=== PATIENT | male | born 1960 | race Caucasian/White ===

== ENCOUNTER → 2017-02-14 19:24 | Outpatient (CLI) | payer BC | END | disposition home or self-care (01) | LOC: D.SLEEP 19:24 | DX: G47.30 Sleep apnea, unspecified (principal) ==

== ENCOUNTER → 2017-08-01 11:00 | Outpatient (CLI) | payer BC ==
[~2017-08-01] VITALS: Ht 182.9 cm; Wt 96.4 kg
--- NOTE | ~2017-08-01 | HEMODYNAMI ---
PATIENT:CADEN FLORES MEDICAL RECORD: [id number] : 64 LOCATION:D.CAT ADMISSION DATE: 08/01/17 Generatedon:08/01/201714:12 Patient name: CADEN FLORES Patient #: [id number] SSN: : 1960 Date of study: 08/01/2017 Page: Of Hemodynamic Procedure Report Patient Data Patient Demographics Procedure consent was obtained First Name: CADEN Gender: Male Last Name: MARK : 1960 [facility] Initial: B Age: 56 year(s) Patient #: [id number] Race: Unknown Additional ID: [id number] Contact details Address: [place] [address] State: [place] City: [place] Zip code: [address] Past Medical History Allergies: No known allergies Admission Admission Data Admission Date: 08/01/2017 Admission Time: 11:00 Admit Source: Other Lab Results Lab Result Date: 08/01/2017 Lab Result Time: 0:00 Biochemistry Name Units Result Min Max BUN mg/dl 13 --(--*-)-- 7 18 Creatinine mg/dl 0.9 --(-*--)-- 0.6 1.3 CBC Name Units Result Min Max Hemoglobin g/dl 15 --(-*--)-- 13.5 17.5 Procedure Procedure Types Cath Procedure Diagnostic Procedure [facility] w/Coronaries PCI Procedure Coronary Stent Coronary Stent Initial Procedure Description Procedure Date Procedure Date: 08/01/2017 Procedure Start Time: 13:10 Procedure End Time: 14:12 Procedure Staff Name Function Venu Ocampo MD Performing Physician Akshat Morales RT Monitor Alyson Hammer RT Scrub Josef Goldstein RN Nurse Jordi Duckworth RT Monitor Procedure Data Cath Procedure Fluoroscopy Diagnostic fluoroscopy Total fluoroscopy Time: time: 13.6 min 13.6 min Diagnostic fluoroscopy Total fluoroscopy dose: dose: 961.46 mGy 961.46 mGy Contrast Material Contrast Material Type Amount (ml) Isovue 300 177 Entry Location Entry Primary Successful Side Size Upsize Upsize Entry Closure Ambrose ccessful Closure Location (Fr) 1 (Fr) 2 (Fr) Remarks Device Remarks Radial Right 6 Fr Mechanical artery Short Compression Femoral Right 6 Fr Exoseal artery Short Estimated blood loss: 20 ml Diagnostic catheters Device Type Used For End Catheter Placement DIAGNOSTIC [place] 110cm 5 Procedure Fr catheter ([id number]) DIAGNOSTIC JL 3.5 5Fr Procedure catheter ([id number]) Procedure Medications Medication Administration Route Dosage 0.9% NaCl I.V. 100 ml/hr Oxygen etCO2 Nasal cannula 2 l/min Heparin Flush Bag added to field 2 bags (1000units/500ml NS) Lidocaine 2% added to field 20 Radial Cocktail added to field (Verapomil 2mg/Nitro 400mcg/Heparin 1500units) Versed I.V. 2 mg Fentanyl I.V. 100 mcg Versed I.V. 1 mg Versed I.V. 1 mg Heparin Bolus I.V. 5000 units Integrilin (Bolus I.V. 8.5 ml 2mg/ml) Integrilin (Bolus wasted 1.5 ml 2mg/ml) Versed I.V. 1 mg Versed I.V. 1 mg Plavix P.O. 600 mg Hemodynamics Rest HGB: 15 (g/dl) Heart Rate: 77 (bpm) Pressure Samples Time Site Value (mmHg) Purpose Heart Use Rate(bpm) 13:12 LV 103/3,6 Snapshot 89 13:13 AO 102/76(85) Pullback 84 13:13 LV 97/5,6 Pullback 84 Gradients Valve Time Site 1 Site 2 Mean SEP/DFP Peak To Heart Use (mmHg) (sec/min) Peak Rate (mmHg) (bpm) Aortic 13:13 LV AO 0 84 97/5,6 102/76(85) Calculations Valve P-P Mean Valve Index Valve Source Name Gradient Area Flow (cm2) Aortic 0 0 Snapshots Pre Cath Intra NCS Post Cath Vital Signs Time Heart Resp SPO2 etCO2 NIBP (mmHg) Rhythm Pain Sedation Rate (ipm) (%) (mmHg) Status Level (bpm) 12:57:07 75 20 100 32.4 124/84(101) NSR 0 (11) 10(A) , No pain 13:01:17 77 15 95 33.1 119/84(96) NSR 0 (11) 10(A) , No pain 13:05:23 87 12 92 27.8 125/86(107) NSR 0 (11) 10(A) , No pain 13:09:35 75 12 94 40.6 124/76(100) NSR 0 (11) 10(A) , No pain 13:13:42 88 14 94 31.6 109/71(87) NSR 0 (11) 10(A) , No pain 13:17:52 85 13 92 23.3 114/73(88) NSR 0 (11) 10(A) , No pain 13:22:02 86 13 94 9 112/75(88) NSR 0 (11) 9(A) , No pain 13:26:12 80 15 95 34.6 108/74(90) NSR 0 (11) 9(A) , No pain 13:30:20 82 16 97 30.1 115/75(104) NSR 0 (11) 10(A) , No pain 13:34:28 79 13 99 30.8 113/76(93) NSR 0 (11) 10(A) , No pain 13:38:36 79 16 99 32.3 113/80(92) NSR 0 (11) 10(A) , No pain 13:42:45 78 15 100 15.8 110/75(93) NSR 0 (11) 10(A) , No pain 13:46:55 76 16 96 27.8 111/71(94) NSR 0 (11) 10(A) , No pain 13:51:01 78 15 98 30 116/82(91) NSR 0 (11) 10(A) , No pain 13:55:11 77 14 97 37.6 109/75(92) NSR 0 (11) 10(A) , No pain 13:59:17 81 16 98 30 113/84(103) NSR 0 (11) 10(A) , No pain 14:03:27 71 13 100 29.3 114/75(104) NSR 0 (11) 10(A) , No pain 14:07:37 69 17 100 30 119/76(95) NSR 0 (11) 10(A) , No pain 14:11:44 67 18 100 24.8 122/84(94) NSR 0 (11) 10(A) , No pain Medications Time Medication Route Dose Verified Delivered Reason Notes Effectiveness by by 12:56:27 0.9% NaCl I.V. 100 Josef Josef Per physician ml/hr Triston Goldstein RN RN 12:56:41 Oxygen etCO2 2 Josef Josef Per physician Nasal l/min Triston Goldstein cannula RN RN 12:57:00 Heparin Flush added 2 Josef Josef used for Bag to bags Loringe Goldstein procedure (1000units/500ml field RN RN NS) 12:57:19 Lidocaine 2% added 20ml Josef Josef for local to vial Lorigan Triston anesthetic field RN RN 12:57:31 Radial Cocktail added Josef Josef used for (Verapomil to Lorigan Lorigan procedure 2mg/Nitro field RN RN 400mcg/Heparin 1500units) 13:03:04 Versed I.V. 2 mg Josef Josef for sedation Triston Goldstein RN RN 13:03:14 Fentanyl I.V. 100 Josef Josef for sedation mcg Triston Goldstein RN RN 13:11:49 Versed I.V. 1 mg Josef Josef for sedation Triston Goldstein RN RN 13:17:58 Versed I.V. 1 mg Josef Josef for sedation Triston Goldstein RN RN 13:27:41 Heparin Bolus I.V. 5000 Josef Josef for units Triston Goldstein anticoagulation RN RN 13:27:58 Integrilin I.V. 8.5 Josef Josef for (Bolus 2mg/ml) ml Triston Goldstein antiplatelet RN RN therapy 13:28:11 Integrilin wasted 1.5 Josef Josef to sharp's (Bolus 2mg/ml) ml Triston Goldstein RN RN 13:31:34 Versed I.V. 1 mg Josef Josef for sedation Triston Goldstein RN RN 13:37:27 Versed I.V. 1 mg Josef Josef for sedation Triston Goldstein RN RN 13:59:25 Plavix P.O. 600 Josef Josef for mg Triston Goldstein antiplatelet RN RN therapy Procedure Log Time Note 12:35:36 Time tracking: Regular hours (M-F 7:00 - 5:00) 12:35:39 Plan of Care:Hemodynamics will remain stable., Cardiac rhythm will remain stable., Comfort level will be maintained., Respiratory function will remain adequate., Patient/ family verbilizes understanding of procedure., Procedure tolerated without complication., Recovers from procedure without complications.. 12:35:41 Signed procedure consent form obtained from patient. 12:35:54 H&P Date Dictated: 07/11/2017 Within 30 days and on chart., H&P Addendum completed by physician on day of procedure. (MUST COMPLETE FOR ALL OUTPATIENTS). 12:36:01 Patient allergic to No known allergies 12:36:50 Lab Result : BUN 13 mg/dl 12:36:50 Lab Result : Creatinine 0.9 mg/dl 12:36:50 Lab Result : Hemoglobin 15 g/dl 12:41:03 Akshat Morales RT(R) sent for patient. Start room use. 12:41:07 Admit Source: Other 12:47:32 Patient received from Pre/Post Procedure Room to CCL 3 Alert and oriented. Tansferred to table in Supine position. 12:47:33 Warm blankets applied, and sher hugger turned on for patient comfort. 12:47:33 Correct patient and procedure confirmed by team. 12:47:34 ECG and BP/O2 sat monitors applied to patient. 12:56:05 Vital chart was started 12:56:27 0.9% NaCl 100 ml/hr I.V. was administered by Josef Goldstein RN; Per physician; 12:56:41 Oxygen 2 l/min etCO2 Nasal cannula was administered by Josef Goldstein RN; Per physician; 12:57:00 Heparin Flush Bag (1000units/500ml NS) 2 bags added to field was administered by Josef Goldstein RN; used for procedure; 12:57:19 Lidocaine 2% 20ml vial added to field was administered by Josef Goldstein RN; for local anesthetic; 12:57:31 Radial Cocktail (Verapomil 2mg/Nitro 400mcg/Heparin 1500units) added to field was administered by Josef Goldstein RN; used for procedure; 13:01:31 Baseline sample Acquired. 13:01:33 Rhythm: sinus rhythm 13:01:34 Full Disclosure recording started 13:01:36 Pre-procedure instructions explained to patient. 13:01:36 Pre-op teaching completed and patient verbalized understanding. 13:01:37 Family in waiting room. 13:01:38 Patient NPO since Midnight. 13:01:39 Is the patient allergic to Iodine/contrast media? No. 13:01:40 Is patient on blood thinner?No 13:01:41 Patient diabetic? No. 13:01:43 Previous problem with sedation/anesthesia? No ? 13:01:43 Snore? Yes 13:01:44 Sleep apnea? Yes 13:01:45 Deviated septum? No 13:01:45 Opens mouth fully? Yes 13:01:46 Sticks out tongue? Yes 13:01:48 Airway obstruction? No ? 13:01:50 Dentures? No ? 13:01:54 Modified Umair's test Ulnar < 7 seconds 13:01:56 Patient pain scale 0/10 ?. 13:02:00 IV patent on arrival in left forearm with 0.9% NaCl at [facility]. 13:02:02 Lab results completed and on chart. 13:02:04 Right Radial & Right Groin area was prepped with chlora-prep and draped in sterile fashion 13:02:05 Alarms reviewed by R. N. 13:02:09 Use device set Radial Dx or PCI 13:02:10 ACIST Syringe (02827) opened to sterile field. 13:02:10 Medline Cath Pack ([id number]) opened to sterile field. 13:02:11 Bag Decanter (2002S) opened to sterile field. 13:02:12 ACIST Hand Control (73497) opened to sterile field. 13:02:12 ACIST Manifold (81424) opened to sterile field. 13:02:13 Tegaderm 4 x 4 (1626W) opened to sterile field. 13:02:13 MBrace Wrist Support ([id number]) opened to sterile field. 13:02:15 DIAGNOSTIC WIRE .035 260cm J wire (317735) opened to sterile field. 13:02:22 SHEATH 6Fr Prelude Radial ([id number]) opened to sterile field. 13:02:28 Sharps counted by scrub and verified by R.N. 13:02:31 Physician arrived 13:02:31 --------ALL STOP TIME OUT------ 13:02:31 Final Timeout: patient, procedure, and site verified with staff and physician. All members of the team are in agreement. 13:02:33 Right Radial & Right Groin site verified by team. 13:02:35 Physical assessment completed. ASA score P 2 - A patient with mild systemic disease as per Venu Ocampo MD. 13:02:38 Sedation plan: IV Moderate Sedation Medication:Versed, Fentanyl 13:03:04 Versed 2 mg I.V. was administered by Josef Goldstein RN; for sedation; 13:03:14 Fentanyl 100 mcg I.V. was administered by Josef Goldstein RN; for sedation; 13:10:34 Zero performed for pressure channel P1 13:10:39 Procedure started. 13:10:42 Local anesthetic to right radial artery with Lidocaine 2% by Venu Ocampo MD.INITIAL ACCESS ONLY 13:10:49 A 6 Fr Short sheath was inserted into the Right Radial artery 13:11:49 Versed 1 mg I.V. was administered by Josef Goldstein RN; for sedation; 13:12:06 A DIAGNOSTIC [place] 110cm 5 Fr catheter (631703) was advanced over the wire and used for Procedure. 13:12:28 LV gram done using CRABTREE 13:12:34 Injector settings: Ml/sec: 5, Volume: 15, 13:12:38 LV hemodynamics recorded. 13:12:56 EF : 40 % 13:13:36 RCA angiography performed. 13:14:40 Catheter exchanged over wire. 13:15:06 A DIAGNOSTIC JL 3.5 5Fr catheter ([id number]) was advanced over the wire and used for Procedure. 13:16:39 Catheter removed. unable to cannulate vessel. 13:16:55 GUIDE 6FR XBLAD 3.5 catheter ([id number]) opened to sterile field. 13:17:09 6 Fr xblad 2.5 guide catheter was inserted over the wire 13:17:58 Versed 1 mg I.V. was administered by Josef Goldstein RN; for sedation; 13:18:30 LCA angiography performed. 13:22:00 WHISPER 300cm guide wire ([id number]) opened to sterile field. 13:22:01 INFLATOR Merit BasixCompak (JQ6184) opened to sterile field. 13:23:10 whisper wire advanced. 13:27:41 Heparin Bolus 5000 units I.V. was administered by Josef Goldstein RN; for anticoagulation; 13:27:43 whisper wire unable to advance. 13:27:50 Wire removed. 13:27:57 COUGAR 300cm guide wire ([id number]) opened to sterile field. 13:27:58 Integrilin (Bolus 2mg/ml) 8.5 ml I.V. was administered by Josef Goldstein RN; for antiplatelet therapy; 13:28:11 Integrilin (Bolus 2mg/ml) 1.5 ml wasted was administered by Josef Goldstein RN; to sharp's; 13:28:38 cougar wire advanced. 13:30:44 Wire advanced across lesion. 13:31:17 Inflate balloon Inflation number: 1 A EUPHORA 3.0 x 15 Balloon ([id number]) was prepped and advanced across the Prox LAD, then inflated to 10 SHAY for 0:30 (min:sec). 13:31:34 Versed 1 mg I.V. was administered by Josef Goldstein RN; for sedation; 13:31:57 Inflation number: 2 The EUPHORA 3.0 x 15 Balloon ([id number]) was reinflated across the Prox LAD, to 12 SHAY for 0:30 (min:sec). 13:32:36 Balloon removed over the wire. 13:35:53 The CHARAN OTW 3.5 x 22 stent ([id number]) was advanced then removed because of failure to cross lesion 13:35:55 Wire removed. 13:35:56 Guide catheter removed. 13:36:51 Guide Catheter removed. unable to get back-up support 13:36:53 SHEATH 6Fr Prelude ([id number]) opened to sterile field. 13:37:07 Local anesthetic to right femoral artery with Lidocaine 2% by Venu Ocampo MD.ADDITIONAL ACCESS 13:37:14 A 6 Fr Short sheath was inserted into the Right Femoral artery 13:37:27 Versed 1 mg I.V. was administered by Josef Goldstein RN; for sedation; 13:40:07 GUIDE 6FR XBLAD 4.0 catheter (72163915) opened to sterile field. 13:40:58 6 Fr xblad 4 guide catheter was inserted over the wire 13:44:30 cougar wire advanced. 13:44:32 Wire advanced across lesion. 13:46:33 Inflation number: 3 The EUPHORA 3.0 x 15 Balloon ([id number]) was reinflated across the Prox LAD, to 12 SHAY for 0:30 (min:sec). 13:46:53 Inflation number: 4 The EUPHORA 3.0 x 15 Balloon ([id number]) was reinflated across the Prox LAD, to 12 SHAY for 0:30 (min:sec). 13:47:11 Inflation number: 5 The EUPHORA 3.0 x 15 Balloon ([id number]) was reinflated across the Prox LAD, to 12 SHAY for 0:30 (min:sec). 13:47:34 Balloon removed over the wire. 13:52:10 Place stent Inflation Number: 6 A CHARAN OTW 3.5 x 22 stent ([id number]) was prepped and advanced across the Prox LAD. The stent was deployed at 14 SHAY for 0:30 (min:sec). 13:52:51 Stent catheter was removed intact over wire. 13:55:27 Place stent Inflation Number: 7 A CHARAN OTW 3.5 x 08 stent ([id number]) was prepped and advanced across the Prox LAD. The stent was deployed at 14 SHAY for 0:30 (min:sec). 13:55:47 Inflation number: 8 The stent balloon was then re-inflated across the Prox LAD to 16 SHAY for 0:30 (min:sec). 13:56:15 Stent catheter was removed intact over wire. 13:56:16 Wire removed. 13:56:17 Guide catheter removed. 13:56:29 EXOSEAL 6Fr (EX600) opened to sterile field. 13:56:39 Sheath removed intact; hemostasis achieved with Exoseal to the Right Femoral artery. 13:56:57 Procedure ended.(Physican Out) 13:57:22 Fluoroscopy time 13.60 minutes. 13:57:27 Fluoroscopy dose: 961.46 mGy 13:57:27 Flurop Dose total: 961.46 13:57:48 Contrast amount:Isovue 300 177ml. 13:58:15 TR BAND Standard ([id number]) opened to sterile field. 13:58:39 Rasheeda Morales RT(R) was relieved by Jordi Duckworth RT(R) (CV) as monitoring person 13:59:25 Plavix 600 mg P.O. was administered by Josef Goldstein RN; for antiplatelet therapy; 14:01:43 Procedure type changed to Cath procedure, Diagnostic procedure, LHC, LHC w/Coronaries, PCI procedure, Coronary Stent, Coronary Stent Initial 14:07:23 Sharps counted by scrub and verified by R.N. 14:08:26 Sheath removed intact; hemostasis achieved with Mechanical Compression to the Right Radial artery. 14:08:33 TR band inflated with 11cc of air. 14:08:38 Insertion/operative site no bleeding no hematoma. 14:08:43 Post-op/insertion site Right Femoral artery dressed using a 4 x 4 and Tegaderm. 14:08:49 Post right femoral artery:stable 14:08:56 Post right radial artery:stable 14:09:09 Post-procedure physical assessment completed. ASA score P 2 - A patient with mild systemic disease as per Venu Ocampo MD. 14:09:16 Post procedure rhythm: sinus rhythm 14:09:19 Estimated blood loss: 20 ml 14:09:20 Post procedure instruction explained to patient.Patient verbalizes understanding. 14:09:21 Patient needs reinforcement of post procedure teaching. 14:09:23 Procedure and supply charges have been captured, reviewed, submitted and are correct. 14:11:38 Vital chart was stopped 14:11:39 See physician's report for complete and final results. 14:11:44 Report given to Pre/Post Procedure Room. 14:11:58 Patient transfered to Pre/Post Procedure Room with Stretcher. 14:12:08 Procedure ended. 14:12:08 Full Disclosure recording stopped 14:12:12 End room use (Document Last) Intervention Summary Intervention Notes Time ActionType Lesion and Equipment Action# Pressure Duration Attributes Used 13:31:17 Inflate Prox LAD EUPHORA 3.0 x 1 10 00:30 balloon 15 Balloon ([id number]) 13:31:57 Reinflate Prox LAD EUPHORA 3.0 x 2 12 00:30 balloon 15 Balloon ([id number]) 13:35:53 Discard CHARAN OTW 3.5 Stent x 22 stent ([id number]) 13:46:33 Reinflate Prox LAD EUPHORA 3.0 x 3 12 00:30 balloon 15 Balloon ([id number]) 13:46:53 Reinflate Prox LAD EUPHORA 3.0 x 4 12 00:30 balloon 15 Balloon ([id number]) 13:47:11 Reinflate Prox LAD EUPHORA 3.0 x 5 12 00:30 balloon 15 Balloon ([id number]) 13:52:10 Place stent Prox LAD CHARAN OTW 3.5 6 14 00:30 x 22 stent ([id number]) 13:55:27 Place stent Prox LAD CHARAN OTW 3.5 7 14 00:30 x 08 stent ([id number]) 13:55:47 Reinflate Prox LAD CHARAN OTW 3.5 8 16 00:30 stent x 08 stent balloon ([id number]) Device Usage Item Name Manufacture Quantity Catalog Number Hospital Part Current Minimal Lot# / Charge Number Stock Stock Serial# Code ACIST Syringe Acist 1 88120 217836 683774 111770 20 (22465) Medical Systems Inc Medline Cath Cardinal 1 [id number] 394566 62423 122879 5 Pack KarmaHire ([id number]) Bag Decanter Microtek 1 2001S 656168 24582 177388 5 (2001S) Medical Inc. ACIST Hand Acist 1 55074 210304 777585 773968 5 Control (54413) Medical Systems Inc ACIST Manifold Acist 1 63628 201314 362070 793556 5 (85188) Medical Systems Inc Tegaderm 4 x 4 3M 1 1626W 567500 150601 383094 5 (1626W) MBrace Wrist Advanced 1 140-0250-00 862349 56212 201326 5 Support Vascular ([id number]) Dynamics DIAGNOSTIC WIRE St Abdif[place] 1 134710 156766 067662 758681 30 .035 260cm J wire (223431) SHEATH 6Fr Merit 1 [id number] 866712 779879 734220 5 Prelude Radial Medical ([id number]) DIAGNOSTIC Terumo 1 40-5781 333909 399872 488259 5 [place] 110cm 5 Fr catheter (842144) DIAGNOSTIC JL Cardinal 1 [id number] 278012 681511 162711 5 3.5 5Fr Health catheter (829267L) GUIDE 6FR XBLAD Cardinal 1 16066754 984809 115163 155549 10 3.5 catheter Health (93687002) WHISPER 300cm Otero 1 [id number] 361321 094551 221010 5 guide wire Vascular ([id number]) INFLATOR Merit Merit 1 GP9577 950257 677842 112247 15 [facility] (OK3753) COUGAR 300cm Otero 1 [id number] 299918 340370 092014 1 guide wire Vascular ([id number]) EUPHORA 3.0 x Medtronic 1 [id number] 082982 332084 275617 5 [id number] 15 Balloon ([id number]) CHARAN OTW 3.5 x Medtronic 1 [id number] 072318 9732993 132574 5 [id number] 22 stent ([id number]) SHEATH 6Fr Merit 1 [id number] 331152 599555 049990 5 Prelude Medical ([id number]) GUIDE 6FR XBLAD Cardinal 1 [id number] 716158 588521 848775 3 4.0 catheter Health (84005694) CHARAN OTW 3.5 x Medtronic 1 [id number] 901582 2476638 923339 5 [id number] 08 stent ([id number]) EXOSEAL 6Fr Cardinal 1 EX600 665328 192217 039966 10 (EX600) Health TR BAND Terumo 1 [id number] 566748 218323 091318 40 Standard ([id number]) Signature Audit [place] Stage Time Signature Unsigned Intra-Procedure 08/01/2017 Jordi Duckworth 2:12:34 PM RT(R) (CV) Signatures Monitor : Akhsat Morales RT Signature : Date : Time : Monitor : Jordi Duckworth RT Signature : Date : Time : [facility] [address] [place] [address]
--- NOTE | ~2017-08-01 | OP ---
PATIENT NAME: CADEN FLORES MEDICAL RECORD: [id number] :64 LOCATION:D.CAT ADMISSION DATE: SURGEON: ELVA CHANCE MD DATE OF OPERATION: 08/01/2017 PROCEDURES: Left heart catheterization, selective coronary angiography, right femoral artery approach. CATHETERS: A 5-Palauan sheath, 5/4 left and right Sandra, 5/4 pig. We attempted radial approach; however, unable secondary to tortuosity of the subclavian aorta. FINDINGS: Left ventriculography in 30-degree CRABTREE view shows global hypokinesis. Overall, LV function reduced 40%. CORONARY ANATOMY: LEFT MAIN: Free of disease. LAD: Has a severe diffuse stenosis in its proximal portion about 90%. It does follow the right via left to right collaterals. CIRCUMFLEX: Free of disease. RIGHT CORONARY ARTERY: Totally occluded with probably bridging collaterals. IMPRESSION: Intervention of the LAD momentarily. DESCRIPTION OF PROCEDURE: Using indwelling 6-Palauan sheath in the right femoral artery, an XB LAD 4 guiding catheter provided good guide and support, followed by 300 cm Whisper wire placed across the site of occluded LAD distal portion of this vessel. Pre-deployment balloon was a 3.0 x 15 mm Euphora balloon up to 12 atmospheres. Stents were placed in the following fashion. A 3.5 x 22 mm Jeremi drug-eluting stent was placed proximally. Distal area was covered with a 3.5 x 8 mm Jeremi drug-eluting stent up to 14-16 atmospheres. Final injection shows excellent resolution of an 80% stenosis, no significant residual. This should improve left to right collaterals as well. Plavix was loaded in the lab. Sheath was closed with ExoSeal device. Again, no radial approach. TRANSINT:[id number] Voice Confirmation ID: [id number] DOCUMENT ID: [id number] ELVA CHANCE MD at 1323 CC: [id number] DICTATION DATE: 08/01/17 1404 AUTO BODY REPAIR TECHNICIAN: 08/01/17 1524 DEP CLI 08/01/17 [facility] [address] [place] [address]
[~2017-08-01 11:00] MED LIST: BAYER CHEWABLE81 MG PO; LIPITOR10 MG PO; LISINOPRIL TAB 20M PO; PLAVIX75 MG PO; VALIUM5 MG PO
[2017-08-01 11:28] VITALS: BP 150/93; Ht 182.9 cm; Wt 96.4 kg
[2017-08-01 11:29] LABS: BASOPHILS 0.4 % (0-2); EOSINOPHILS 2.6 % (0-7); HEMATOCRIT 44.4 % (42.0-54.0); IMMATURE GRANULOCYTES 0.3 % (0-5); LYMPHOCYTES 25.9 % (15-50); MCH 32.4 pg (26.0-34.0); MCHC 33.8 g/dL (31.0-37.0); MCV 95.9 fL (80.0-100.0); MEAN PLATELET VOLUME 9.7 fL (7.4-10.4); MONOCYTES 8.4 % (2-11); NEUTROPHILS 62.4 % (40-80); PLATELET COUNT 253 10x3/uL (130-400); RBC 4.63 10x6/uL (4.20-6.10); WBC 9.3 10x3/uL (4.8-10.8)
[2017-08-01 11:42] LABS: CALC OSMOLALITY 279 mosm/kg (275-300); CARBON DIOXIDE 26.2 mmol/L (21.0-32.0); CHLORIDE - SERUM 103 mmol/L (98-107); CREATININE - SERUM 0.9 mg/dL (0.6-1.3); GLUCOSE 109 mg/dL (74-106); POTASSIUM - SERUM 3.9 mmol/L (3.5-5.1); SODIUM 140 mmol/L (136-145); UREA NITROGEN 13 mg/dL (7-18); eGFR NON AFRICAN AMERICAN > 90 mL/min (90-120)
== END | disposition home or self-care (01) ==
LOC: D.CATH 11:00
PROVIDERS: Internal Medicine Interventional Cardiology
DX: I50.30 Unspecified diastolic (congestive) heart failure (principal); I42.9 Cardiomyopathy, unspecified; E78.5 Hyperlipidemia, unspecified; I10 Essential (primary) hypertension; Z01.812 Encounter for preprocedural laboratory examination

== ENCOUNTER → 2018-05-12 13:46 | Outpatient (CLI) | payer BC ==
[2017-08-01 11:28] VITALS: BMI 28.8
== END | disposition home or self-care (01) ==
LOC: D.CT 13:46
DX: G44.009 Cluster headache syndrome, unspecified, not intractable (principal)

== ENCOUNTER 2018-10-21 14:04 | Emergency (ER) | payer BC ==
[~2018-10-21] VITALS: Ht 182.9 cm; Wt 103.2 kg
[2018-10-21 14:07] VITALS: Ht 182.9 cm; Wt 103.2 kg
[2018-10-21] MEDS ORDERED: NORVASC5 MG PO (14:08)
[2018-10-21] MEDS ORDERED: ZOCOR20 MG PO (14:08)
[2018-10-21 14:38] LABS: BASOPHILS 0.4 % (0-2); EOSINOPHILS 1.2 % (0-7); HEMATOCRIT 41.7 % (42.0-54.0); HEMOGLOBIN 14.3 g/dL (13.5-17.5); IMMATURE GRANULOCYTES 0.2 % (0-5); LYMPHOCYTES 24.5 % (15-50); MCH 31.5 pg (26.0-34.0); MCHC 34.3 g/dL (31.0-37.0); MCV 91.9 fL (80.0-100.0); MEAN PLATELET VOLUME 9.6 fL (7.4-10.4); MONOCYTES 7.9 % (2-11); NEUTROPHILS 65.8 % (40-80); PLATELET COUNT 259 10x3/uL (130-400); RBC 4.54 10x6/uL (4.20-6.10); RDW 12.6 % (11.5-14.5); WBC 8.5 10x3/uL (4.8-10.8)
[2018-10-21 14:51] LABS: ALBUMIN 3.8 g/dL (3.4-5.0); ALKALINE PHOSPHATASE 66 U/L (46-116); ALT (SGPT) 37 U/L (10-68); BILIRUBIN - TOTAL 0.35 mg/dL (0.2-1.3); CALC OSMOLALITY 287 mosm/kg (275-300); CALCIUM 9.2 mg/dL (8.5-10.1); CARBON DIOXIDE 30.9 mmol/L (21.0-32.0); CHLORIDE - SERUM 106 mmol/L (98-107); GLUCOSE 126 mg/dL (74-106); POTASSIUM - SERUM 3.7 mmol/L (3.5-5.1); PROTEIN - SERUM 6.9 g/dL (6.4-8.2); SODIUM 144 mmol/L (136-145); UREA NITROGEN 11 mg/dL (7-18); eGFR NON AFRICAN AMERICAN 82 mL/min (90-120)
[2018-10-21] MEDS ORDERED: MECLIZINE HCL25 MG PO (15:34)
[2018-10-21] MEDS ORDERED: ATIVAN1 MG PO (15:41)
[2018-10-21 17:28] VITALS: BP 150/80
== END 2018-10-21 17:28 | disposition home or self-care (01) ==
LOC: D.ER 14:04
PROVIDERS: Emergency Medicine
DX: R42 Dizziness and giddiness (principal); N40.0 Benign prostatic hyperplasia without lower urinary tract symptoms; I10 Essential (primary) hypertension

== ENCOUNTER → 2019-05-16 09:48 | Outpatient (CLI) | payer BC ==
[2018-10-21 14:07] VITALS: BMI 30.8
[~2019-05-16 09:48] MED LIST changes: +ATIVAN1 MG PO; +MECLIZINE HCL25 MG PO; +NORVASC5 MG PO; +ZOCOR20 MG PO
== END | disposition home or self-care (01) ==
LOC: D.HCCECHO 09:48
PROVIDERS: ATTEND Internal Medicine Interventional Cardiology
DX: I10 Essential (primary) hypertension (principal)